=== PATIENT | male | born 1965 | race Caucasian/White ===

== ENCOUNTER 2023-05-26 14:09 | Outpatient (RCR) | payer BC, SELFPAY | END 2023-05-26 23:59 | disposition home or self-care (01) | LOC: RPT 14:09 | PROVIDERS: ATTENDING PHYSICIAN Orthopaedic Surgery; FAMILY PHYSICIAN Internal Medicine | DX: Z47.89 Encounter for other orthopedic aftercare (principal); M25.511 Pain in right shoulder; Z73.6 Limitation of activities due to disability; M62.81 Muscle weakness (generalized) | CPT/HCPCS: 97010; 97110; 97161 ==

== ENCOUNTER 2023-06-25 14:18 | Outpatient (RCR) | payer BC, SELFPAY | END 2023-06-25 23:59 | disposition home or self-care (01) | LOC: RPT 14:18 | PROVIDERS: ATTENDING PHYSICIAN Orthopaedic Surgery; FAMILY PHYSICIAN Internal Medicine | DX: Z47.89 Encounter for other orthopedic aftercare (principal); M25.511 Pain in right shoulder; Z73.6 Limitation of activities due to disability; M62.81 Muscle weakness (generalized) | CPT/HCPCS: 97010; 97110; 97140 ==

== ENCOUNTER 2023-07-21 14:04 | Outpatient (RCR) | payer BC, SELFPAY | END 2023-07-21 23:59 | disposition home or self-care (01) | LOC: RPT 14:04 | PROVIDERS: ATTENDING PHYSICIAN Orthopaedic Surgery; FAMILY PHYSICIAN Internal Medicine | DX: Z47.89 Encounter for other orthopedic aftercare (principal); M25.511 Pain in right shoulder; Z73.6 Limitation of activities due to disability; M62.81 Muscle weakness (generalized) | CPT/HCPCS: 97010; 97110 ==

== ENCOUNTER 2023-08-25 14:04 | Outpatient (RCR) | payer BC, SELFPAY | END 2023-08-25 23:59 | disposition home or self-care (01) | LOC: RPT 14:04 | PROVIDERS: ATTENDING PHYSICIAN Orthopaedic Surgery; FAMILY PHYSICIAN Internal Medicine | DX: Z47.89 Encounter for other orthopedic aftercare (principal); M25.511 Pain in right shoulder; Z73.6 Limitation of activities due to disability; M62.81 Muscle weakness (generalized) | CPT/HCPCS: 97010; 97110 ==

== ENCOUNTER 2023-09-08 14:23 | Outpatient (RCR) | payer BC, SELFPAY | END 2023-09-08 23:59 | disposition home or self-care (01) | LOC: RPT 14:23 | PROVIDERS: ATTENDING PHYSICIAN Orthopaedic Surgery; FAMILY PHYSICIAN Internal Medicine | DX: M25.511 Pain in right shoulder (principal); Z47.89 Encounter for other orthopedic aftercare; Z73.6 Limitation of activities due to disability; M62.81 Muscle weakness (generalized) | CPT/HCPCS: 97010; 97110 ==

== ENCOUNTER → 2024-03-04 06:19 | Day surgery (SDC) | payer OTHER, SELFPAY | LOC: GI 06:19 | PROVIDERS: ATTENDING PHYSICIAN Specialist | DX: Z12.11 Encounter for screening for malignant neoplasm of colon (principal); D12.3 Benign neoplasm of transverse colon; K63.5 Polyp of colon; Z86.0101 Personal history of adenomatous and serrated colon polyps; Z80.0 Family history of malignant neoplasm of digestive organs | CPT/HCPCS: 45385; 45380; 88305 ==

== ENCOUNTER → 2024-11-13 12:28 | Outpatient (REF) | payer OTHER, SELFPAY | LOC: MRI 3T 12:28 | PROVIDERS: ATTENDING PHYSICIAN Orthopaedic Surgery; FAMILY PHYSICIAN Internal Medicine | DX: S46.011A Strain of muscle(s) and tendon(s) of the rotator cuff of right shoulder, initial encounter (principal) | CPT/HCPCS: 73221 ==